=== PATIENT | female | born 1980 | race Caucasian/White ===

== ENCOUNTER 2017-04-12 18:27 | Inpatient (IN) | payer OTHER ==
[2017-04-12] MEDS ORDERED: SODIUM CHLORIDE 0.9% FLUSH 10 ML FLUSH IV FLUSH PRN ×2 (20:30)
[2017-04-12] MEDS ORDERED: NS 1000 ML OTHER PRN (20:30)
[2017-04-12] MEDS ORDERED: DINOPROSTONE 10 MG INSERT-LEAVE FOR 12 HOURS VAGINAL ONE (20:30)
[2017-04-12 20:41] LABS: AUTOMATED NEUTROPHIL # 8.7 TH/MM3 (1.8-7.7); BASOPHIL % 0.2 % (0.0-2.0); EOSINOPHIL # 0.1 TH/MM3 (0-0.4); EOSINOPHIL % 0.9 % (0.0-4.0); HEMATOCRIT 36.9 % (35.0-46.0); HEMO FLAGS DIFF FINAL; LYMPH % 10.8 % (9.0-44.0); LYMPHOCYTE # 1.2 TH/MM3 (1.0-4.8); MEAN CELL VOLUME 92.9 FL (80.0-100.0); MEAN CORPUSCULAR HEMOGLOBIN 31.6 PG (27.0-34.0); MONO % 6.8 % (0.0-8.0); NEUT % 81.3 % (16.0-70.0); PLATELET COUNT 205 TH/MM3 (150-450); RED BLOOD COUNT 3.97 MIL/MM3 (4.00-5.30); RED CELL DISTRIBUTION WIDTH 13.9 % (11.6-17.2); WHITE BLOOD COUNT 10.7 TH/MM3 (4.0-11.0)
[2017-04-12] MEDS: LACTATED RINGER'S 1000 ML INJ 1,000 ML IV SCH ×2 (20:49→20:51)
[2017-04-12 20:54] LABS: BACTERIA, URINE OCC /hpf; BLOOD, URINE NEG (NEG); COMMENT (UR) CULT NOT INDICATED; CULTURE IF INDICATED CULT NOT INDICATED; GLUCOSE,URINE NEG (NEG); KETONE, URINE NEG (NEG); NITRITE,URINE NEG (NEG); PH, URINE 6.5 (5.0-8.5); SQUAMOUS EPITHELIAL CELL URINE <1 /hpf (0-5); URINE COLOR YELLOW (YELLW/STRAW)
[2017-04-12 21:30] VITALS: RESP 18
[2017-04-12 22:19] VITALS: BP 108/73; PULSE 85
[2017-04-12 22:30] VITALS: RESP 18; TEMP 98.7
[2017-04-13] VITALS (88 sets, daily range): BP systolic 85–129; BP diastolic 46–104; PULSE 68–153; RESP 16–20; TEMP 98–98.8
--- NOTE | 2017-04-13 08:12 | PD.LABORPN ---
Subjective Subjective comfortable s/p cervidil Objective Vital Signs Vital Signs Date Time Temp Pulse Resp B/P (MAP) Pulse Ox O2 Delivery O2 Flow Rate FiO2 04/13/17 07:14 73 98/75 (83) 04/13/17 07:13 77 04/13/17 07:11 98.2 16 04/13/17 05:50 16 04/13/17 01:12 16 Objective Pelvic Exam: Cervix: [-] Dilatation: [-] 1 Effacement: [-] 50 Station: [-] -2 Presentation: [-] vtx Membranes: [intact or ruptured] arom clear Uterine Contractions: [-] irreg FHT's: Category: [-] 1 Baseline: [-] Reactive: [-] R Variability: [-] Decels: [-] Weeks Gestation: 40 Gest Age Assessed Date: Apr 13, 2017 Gest Age Assessed Time: 08:11 Pt started active labor?: No Medical induction of labor?: Yes Medical induction start date: Apr 13, 2017 Medical induction start time: 08:11 Artificial rupture of membrane: Yes Artificial ROM date: Apr 13, 2017 Artifical ROM time: 08:12 Assessment/Plan Problem List: (1) state, incidental ICD Codes: Z33.1 - state, incidental Assessment and Plan IUP at 40+ wks arom done pitocin prn, GBBS proph anticipate Tyra Boykin MD Apr 13, 2017 08:12
[2017-04-13] MEDS ORDERED: OXYTOCIN 30 UNITS-500ML PREMIX 500 ML IV SCH ×2 (08:15→21:45)
[2017-04-13] MEDS: LACTATED RINGER'S 1000 ML INJ 1,000 ML IV SCH ×2 (08:26→12:30)
[2017-04-13] MEDS ORDERED: PENICILLIN G POT 5,000,000 UNITS/NS 100 ML (Mini-Bag Plus) IV ONE ×2 (08:30)
--- NOTE | 2017-04-13 12:05 | MH ---
cc: LARISA OLEA DATE OF ADMISSION: 04/12/2017 HISTORY OF PRESENT ILLNESS She is [id number], 1, para 0, intrauterine at 40 weeks and 4 days for induction of labor. care has been with [facility], group B strep positive, possible exposure to HSV. She has been on Valtrex. OBSTETRICAL HISTORY She is para 0. PAST CASE MANAGER SPECIALIST HISTORY Unremarkable. PAST MEDICAL HISTORY She denies hypertension, diabetes or asthma. SOCIAL HISTORY She denies during . PAST SURGICAL HISTORY She had a left breast biopsy in 2003 and right wrist surgery in 2009. PHYSICAL EXAMINATION VITAL SIGNS: Stable. Blood pressure is 90/60. She is 152 pounds. HEAD/HEART/CHEST/LUNG: Exams within normal limits. ABDOMEN: Soft, nontender, gravid. heart rate is in the 120s with accelerations into the 160s. Biophysical profile 8 out of 8, cephalic presentation. VAGINAL EXAM: Cervix is ___ fingertip, anterior, 40% effaced, -2 station, soft. Lorenz score is about 6. ASSESSMENT/PLAN She is a 36-year-old, 1, para 0, intrauterine at 40 weeks and 4 days for induction of labor with Cervidil, group B strep positive for penicillin in labor. Risks, benefits, alternatives have been explained to the patient, all of her questions have been answered. MD FRANCA Pepe/TRISHA /12:32 PM /11:59 AM
[2017-04-13] MEDS: PENICILLIN G POT 2,500,000 UNITS/NS 100 ML IV SCH ×4 (12:27→16:35)
[2017-04-13] MEDS ORDERED: fentaNYL 2MCG-BUPIV 0.125% INJ 100 ML ONE (15:29)
[2017-04-13] MEDS ORDERED: BUPIVACAINE HCL PF 0.25% 10 ML VIAL ONE (15:42)
[2017-04-13] MEDS ORDERED: DIPHTH/TETANUS/ACEL PERTUSSIS (BOOSTER) 0.5 ML VIAL/PFS IM ONE (16:00)
[2017-04-13] MEDS ORDERED: MEASLES, MUMPS, RUBELLA VACCINE 0.5 ML VIAL SQ ONE (16:00)
[2017-04-13] MEDS ORDERED: DO NOT ADMINISTER ANTICOAGULANTS PRN (17:30)
[2017-04-13] MEDS ORDERED: NO SYSTEM NARCOTICS PRN (17:30)
[2017-04-13] MEDS ORDERED: fentaNYL 2MCG-BUPIV 0.125% 100 ML EPIDURAL SCH (17:30)
[2017-04-13] MEDS ORDERED: ePHEDrine/NS 25 MG/5 ML SYR IV PRN (17:30)
--- NOTE | 2017-04-13 21:39 | PD.OB.DELI ---
Weeks gestation: 40 Gest age assessed date: Apr 13, 2017 Gest age assessed time: 08:11 Pt started active labor?: No Medical induction of labor?: Yes Medical induction start date: Apr 13, 2017 Medical induction start time: 08:11 Artificial rupture of membrane: Yes Artificial ROM date: Apr 13, 2017 Artifical ROM time: 08:12 Anesthesia: Epidural Episiotomy: None Vaginal Delivery: Normal Presentation: Occiput anterior Nuchal Cord: None Infant: Female Delivery date: Apr 13, 2017 Delivery time: 21:22 One Minute : 9 Five Minute : 9 Placenta: Spontaneous delivery Laceration: 2 deg Repair: Chromic interrupted, Vicryl running Estimated blood loss: 350cc Tyra Kendall MD Apr 13, 2017 21:39
[2017-04-13] MEDS ORDERED: ALUMINUM/MAGNESIUM/SIMETH 30 ML CUP PO PRN (21:45)
[2017-04-13] MEDS ORDERED: ONDANSETRON ODT 4 MG TAB PO PRN (21:45)
[2017-04-13] MEDS ORDERED: SODIUM CHLORIDE 0.9% FLUSH 10 ML FLUSH IV FLUSH PRN (21:45)
[2017-04-13] MEDS ORDERED: ZOLPIDEM TARTRATE 5 MG TAB PO PRN (21:45)
[2017-04-13] MEDS ORDERED: ACETAMINOPHEN 325 MG TAB PO PRN (21:45)
[2017-04-14 01:00] VITALS: BP 108/71; PULSE 87; RESP 18; TEMP 98.3
[2017-04-14] MEDS: WITCH HAZEL 50%/GLYCERIN 12.5% 40 PAD JAR TOPICAL PRN (01:07)
[2017-04-14] MEDS: IBUPROFEN 600 MG TAB PO PRN ×4 (01:07→20:26)
[2017-04-14] MEDS: BENZOCAINE 20% TOPICAL SPRAY 60 ML CAN TOPICAL PRN (01:07)
[2017-04-14] MEDS: DOCUSATE SODIUM 50 MG/SENNA 8.6 MG TAB PO PRN (08:04)
[2017-04-14 09:00] VITALS: BP 104/67; PULSE 77; RESP 20; TEMP 98
[2017-04-14] MEDS ORDERED: SODIUM CHLORIDE 0.9% FLUSH 10 ML FLUSH IV FLUSH SCH (09:00)
--- NOTE | 2017-04-14 09:41 | HHI.OB ---
Subjective Post Day: 1 Remarks trying to breastfeed Objective Vitals/I&O Vital Signs Date Time Temp Pulse Resp B/P (MAP) Pulse Ox O2 Delivery O2 Flow Rate FiO2 04/14/17 01:00 108/71 (83) 04/14/17 01:00 98.3 04/14/17 01:00 87 18 04/13/17 22:47 109 04/13/17 22:47 116/63 (80) 04/13/17 22:30 93 04/13/17 22:30 91/51 (64) 04/13/17 22:30 18 04/13/17 22:15 18 04/13/17 22:15 105 04/13/17 22:15 99/67 (78) 04/13/17 22:00 102 04/13/17 22:00 98.8 04/13/17 22:00 18 04/13/17 22:00 107/70 (82) 04/13/17 21:46 100 95/63 (74) 04/13/17 21:45 20 04/13/17 21:31 112/70 (84) 04/13/17 21:31 109 04/13/17 21:15 103/49 (67) 04/13/17 21:01 85/46 (59) 04/13/17 20:45 20 04/13/17 20:45 153 99/65 (76) 04/13/17 20:30 127 101/60 (74) 04/13/17 20:15 115 101/56 (71) 04/13/17 20:00 96 100/59 (73) 04/13/17 19:47 18 04/13/17 19:45 105 95/66 (76) 04/13/17 19:43 18 04/13/17 19:38 98.4 04/13/17 19:30 20 04/13/17 19:30 101 104/71 (82) 04/13/17 19:15 103 103/69 (80) 04/13/17 19:10 112 04/13/17 19:01 129/70 (89) 04/13/17 18:55 98 04/13/17 18:46 81 97/54 (68) 04/13/17 18:45 83 04/13/17 18:40 77 9/15/17 18:30 99 107/56 (73) 17 18:30 81 15/17 18:25 78 15/17 18:21 98.1 18 17 18:20 84 1517 18:16 77 100/55 (70) 17 18:15 81 17 18:10 95 17 18:05 76 17 18:04 80 109/64 (79) 17 18:00 75 17 17:45 80 96/65 (75) 04/13/17 17:45 98 17 17:40 79 17 17:35 89 17 17:30 77 107/67 (80) 04/13/17 17:30 85 17 17:25 84 17 17:20 79 17 17:15 88 104/67 (79) 17 17:15 95 17 17:10 90 17 17:05 85 17 17:00 73 113/65 (81) 04/13/17 17:00 68 17 16:55 88 17 16:52 91 100/61 (74) 04/13/17 16:50 88 17 16:46 98.1 18 17 16:45 77 106/65 (79) 17 16:45 80 1517 16:40 78 103/67 (79) 17 16:40 78 15/17 16:35 78 15/17 16:30 70 15/17 16:30 100 106/66 (79) 15/17 16:25 70 15/17 16:25 84 106/66 (79) 15/17 16:20 79 15/17 16:20 102 114/74 (87) 15/17 16:15 98 15/17 16:15 99 114/59 (77) 15/17 16:13 84 129/72 (91) 15/17 16:12 119/104 (109) 1517 16:10 72 9/15/17 16:10 71 106/68 (81) 04/13/17 16:08 79 104/69 (81) 04/13/17 16:07 76 95/70 (78) 04/13/17 16:05 79 04/13/17 16:05 71 106/68 (81) 04/13/17 16:03 75 111/63 (79) 04/13/17 16:01 100/63 (75) 04/13/17 16:01 78 04/13/17 16:00 95 04/13/17 15:59 93 109/67 (81) 04/13/17 15:55 78 04/13/17 15:50 92 04/13/17 15:45 80 04/13/17 15:44 77 117/72 (87) 04/13/17 15:40 85 04/13/17 15:35 85 04/13/17 15:30 94 04/13/17 15:29 18 04/13/17 15:25 93 04/13/17 15:20 85 04/13/17 15:15 84 04/13/17 15:10 89 106/69 (81) 04/13/17 15:10 18 04/13/17 15:10 80 04/13/17 15:09 98.0 04/13/17 15:05 85 04/13/17 14:40 74 04/13/17 14:06 71 105/62 (76) 04/13/17 12:35 79 111/71 (84) 04/13/17 12:34 98.1 18 Objective Remarks GENERAL: Well-nourished, well-developed patient. CARDIOVASCULAR: Regular rate and rhythm without murmurs, gallops, or rubs. RESPIRATORY: Breath sounds equal bilaterally. No accessory muscle use. ABDOMEN/GI: Abdomen soft, non-tender. Fundus: Firm, non-tender at umbilicus. GENITOURINARY: Light to moderate bleeding. EXTREMITIES: No cyanosis or edema, non-tender, without signs of DVT. Medications and IVs Current Medications Medications (Trade) Dose Ordered Sig/Claudio Route Start Time Stop Time Status Last Admin (NS Flush) 2 ml BID IV FLUSH 04/14/17 09:00 (NS Flush) 2 ml UNSCH PRN IV FLUSH 04/13/17 21:45 (Tylenol) 650 mg Q4H PRN PO 04/13/17 21:45 (Motrin) 600 mg Q6H PRN PO 04/13/17 21:45 04/14/17 08:04 (Americaine 20% Top Spr) 1 spray Q4H PRN TOPICAL 04/13/17 21:45 04/14/17 01:07 (Tucks Pads) 1 applic QID PRN TOPICAL 04/13/17 21:45 04/14/17 01:07 (Elena-Colace) 2 tab Q12H PRN PO 04/13/17 21:45 04/14/17 08:04 (Ambien) 5 mg HS PRN PO 04/13/17 21:45 (Mag-Al Plus Susp Liq) 15 ml Q8H PRN PO 04/13/17 21:45 (Zofran Odt) 4 mg Q6H PRN PO 04/13/17 21:45 Assessment/Plan Problem List: (1) state, incidental ICD Codes: Z33.1 - state, incidental (2) Vaginal delivery ICD Codes: O80 - Encounter for full-term uncomplicated delivery Assessment and Plan PPD #1 S/P Discharge Planning routine Attending Attestation pt seen by Tyra Hernandez MD Apr 14, 2017 09:40
[2017-04-14 23:00] VITALS: BP 110/68; PULSE 78; RESP 18; TEMP 97.8
[2017-04-15] MEDS: BENZOCAINE 20% TOPICAL SPRAY 60 ML CAN TOPICAL PRN (03:36)
[2017-04-15] MEDS: WITCH HAZEL 50%/GLYCERIN 12.5% 40 PAD JAR TOPICAL PRN (03:37)
[2017-04-15] MEDS: IBUPROFEN 600 MG TAB PO PRN ×2 (03:38→09:52)
[2017-04-15 08:15] VITALS: BP 116/73; PULSE 81; RESP 16; TEMP 98
[2017-04-15] MEDS: DOCUSATE SODIUM 50 MG/SENNA 8.6 MG TAB PO PRN (09:50)
--- NOTE | 2017-04-15 10:15 | HHI.OB ---
Subjective Post Day: 2 Remarks doing well Objective Vitals/I&O Vital Signs Date Time Temp Pulse Resp B/P (MAP) Pulse Ox O2 Delivery O2 Flow Rate FiO2 04/15/17 08:15 98.0 04/15/17 08:15 81 16 116/73 (87) 04/14/17 23:00 97.8 78 18 110/68 (82) Objective Remarks GENERAL: Well-nourished, well-developed patient. CARDIOVASCULAR: Regular rate and rhythm without murmurs, gallops, or rubs. RESPIRATORY: Breath sounds equal bilaterally. No accessory muscle use. ABDOMEN/GI: Abdomen soft, non-tender. Fundus: Firm, non-tender at umbilicus. GENITOURINARY: Light to moderate bleeding. EXTREMITIES: No cyanosis or edema, non-tender, without signs of DVT. Medications and IVs Current Medications Medications (Trade) Dose Ordered Sig/Claudio Route Start Time Stop Time Status Last Admin (NS Flush) 2 ml BID IV FLUSH 04/14/17 09:00 (NS Flush) 2 ml UNSCH PRN IV FLUSH 04/13/17 21:45 (Tylenol) 650 mg Q4H PRN PO 04/13/17 21:45 (Motrin) 600 mg Q6H PRN PO 04/13/17 21:45 04/15/17 09:52 (Americaine 20% Top Spr) 1 spray Q4H PRN TOPICAL 04/13/17 21:45 04/15/17 03:36 (Tucks Pads) 1 applic QID PRN TOPICAL 04/13/17 21:45 04/15/17 03:37 (Elena-Colace) 2 tab Q12H PRN PO 04/13/17 21:45 04/15/17 09:50 (Ambien) 5 mg HS PRN PO 04/13/17 21:45 (Mag-Al Plus Susp Liq) 15 ml Q8H PRN PO 04/13/17 21:45 (Zofran Odt) 4 mg Q6H PRN PO 04/13/17 21:45 Assessment/Plan Problem List: (1) state, incidental ICD Codes: Z33.1 - state, incidental (2) Vaginal delivery ICD Codes: O80 - Encounter for full-term uncomplicated delivery Assessment and Plan PPD #2 S/P Discharge Planning routine Attending Attestation pt seen by Tyra Hernandez MD Apr 15, 2017 10:15
[2017-04-15] MEDS ORDERED: IBUP-232 PO (10:16)
--- NOTE | 2017-04-15 10:16 | HHI.DCPOC ---
Discharge Care Plan Your Health Problems Are: Pelvic pain Report Symptoms to Your Doctor -Temperature above 100.5 degrees -Redness, of incision or excessive or foul smelling drainage -Unusual pain or calf pain -Increased vaginal bleeding -Painful or difficulty urinating -Feelings of extreme sadness or anxiety after 2 weeks Goals to Promote Your Health * To prevent worsening of your condition and complications * To maintain your health at the optimal level Directions to Meet Your Goals Take your medications as prescribed Follow your dietary instruction Follow activity as directed Ensure plenty of rest for recovery Drink fluids for hydration Keep your appointments as scheduled Take your immunizations and boosters as scheduled If your symptoms worsen call your PCP, if no PCP go to Urgent Care Center or Emergency Room Smoking is Dangerous to Your Health. Avoid second hand smoke Call the 24-hour crisis hotline for domestic abuse at Tyra Kendall MD Apr 15, 2017 10:16
== END 2017-04-15 15:30 | disposition home or self-care (01) | DRG 775 ==
LOC: H2EA 18:27 → H1EA 04-14 00:36 → HNUR 04-14 05:33 → H1EA 04-14 06:12
PROVIDERS: ADMIT Obstetrics & Gynecology; ATTEND Obstetrics & Gynecology
PROC: 3E0P7GC Introduction of Other Therapeutic Substance into Female Reproductive, Via Natural or Artificial Opening (ICD-10-PCS; principal; 2017-04-12)
PROC: 10E0XZZ Delivery of Products of Conception, External Approach (ICD-10-PCS; 2017-04-13)
PROC: 0KQM0ZZ Repair Perineum Muscle, Open Approach (ICD-10-PCS; 2017-04-13)
PROC: 00HU33Z Insertion of Infusion Device into Spinal Canal, Percutaneous Approach (ICD-10-PCS; 2017-04-13)
PROC: 3E0R3CZ (ICD-10-PCS; 2017-04-13)
DX: O99.824 Streptococcus B carrier state complicating childbirth (principal); Z37.0 Single live birth; Z3A.40 40 weeks gestation of pregnancy; O70.1 Second degree perineal laceration during delivery
CPT/HCPCS: 59025; 81001; 85025; 86900; 86901; J2540; J2590; J3010; J7120